=== PATIENT | female | born 1970 | race Caucasian/White ===

== ENCOUNTER 2018-07-09 22:47 | Emergency (ER) | payer BC ==
--- NOTE | 2018-07-09 23:27 | EDM.PDOC ---
ED HPI GENERAL MEDICAL PROBLEM - General Chief Complaint: Head Injury Stated Complaint: FELL IN SHOWER, HIT LEFT SIDE OF FACE Time Seen by Provider: 07/09/18 23:21 Source of Information: Reports: Patient, Family, RN Notes Reviewed History Limitations: Reports: No Limitations - History of Present Illness INITIAL COMMENTS - FREE TEXT/NARRATIVE: 48-year-old female presents to the emergency department today following trauma at home she slipped in the shower and injuring her right forearm and left side of her face she may have been unconscious for a brief moment but no nausea and vomiting at this time. Does complain of headache face Pain Score (Numeric/FACES): 1 - Related Data Allergies Allergy/AdvReac Type Severity Reaction Status Date / Time Tetracyclines Allergy Swollen Verified 07/09/18 23:07 Tongue Home Meds: Home Meds Losartan [Cozaar] 25 mg PO DAILY 07/09/18 [History] Past Medical History Cardiovascular History: Reports: Hypertension [employer] History: Reports: Psychiatric History: Reports: Depression - Infectious Disease History Infectious Disease History: Reports: Chicken Pox - Past Surgical History Female Surgical History: Reports: Section, Tubal Ligation Social & Family History - Tobacco Use Smoking Status *Q: Never Smoker - Caffeine Use Caffeine Use: Reports: None - Recreational Drug Use Recreational Drug Use: No ED ROS GENERAL - Review of Systems Review Of Systems: See Below Constitutional: Reports: No Symptoms HEENT: Reports: Other (Facial pain) Respiratory: Reports: No Symptoms Cardiovascular: Reports: No Symptoms GI/Abdominal: Reports: No Symptoms : Reports: No Symptoms Musculoskeletal: Reports: No Symptoms Skin: Reports: No Symptoms Neurological: Reports: No Symptoms ED EXAM, HEAD INJURY - Physical Exam Exam: See Below Text/Narrative:: No tenderness wrists elbows shoulders bilaterally no tenderness at the knees there is bruising appreciated along the forearm right side Exam Limited By: No Limitations General Appearance: Alert, WD/WN, No Apparent Distress Head: Atraumatic, Facial Ecchymosis, Facial Swelling Nexus Criteria: No: Posterior, Midline Cervical Tenderness, Evidence of Intoxication, Altered Level of Consciousness, Focal Neurological Deficit, Painful Distraction Injuries Eyes: Bilateral Eye: EOMI, Normal Inspection Nose: Normal Inspection, Normal Mucousa, No Blood Throat/Mouth: Normal Inspection, Normal Lips, Normal Teeth, Normal Gums, Normal Oropharynx, Normal Voice, No Airway Compromise Neck: Non-Tender, Full Range of Motion, Normal Alignment, Normal Inspection Respiratory: No Respiratory Distress, Lungs Clear, Normal Breath Sounds, No Accessory Muscle Use Cardiovascular: Regular Rate, Rhythm, No Murmur Course - Vital Signs Last Recorded V/S: Last Vital Signs Temp 97.2 F 07/09/18 23:14 Pulse 61 07/09/18 23:14 Resp 16 07/09/18 23:14 BP 141/72 H 07/09/18 23:14 Pulse Ox 98 07/09/18 23:14 - Orders/Labs/Meds Orders: Active Orders 24 hr Category Date Time Status Head wo Cont [CT] Stat Exams 07/09/18 23:24 Taken Max Facial Sinus wo Cont [CT] Stat Exams 07/09/18 23:24 Taken Departure - Departure Time of Disposition: 00:02 Disposition: Home, Self-Care 01 Condition: Good Clinical Impression: Head injury Qualifiers: Encounter type: initial encounter Qualified Code(s): S09.90XA - Unspecified injury of head, initial encounter - Discharge Information Referrals: PCP,None [Primary Care Provider] - Forms: ED Department Discharge Additional Instructions: Follow head injury guidelines sheet, Please followup with your primary care provider in 3-5 days if not better, please call return to the emergency department with worsening of symptoms. - My Orders Last 24 Hours: My Active Orders 07/09/18 23:24 Head wo Cont [CT] Stat Max Facial Sinus wo Cont [CT] Stat - Assessment/Plan Last 24 Hours: My Active Orders 07/09/18 23:24 Head wo Cont [CT] Stat Max Facial Sinus wo Cont [CT] Stat Plan: Assessment Acuity = acute Site and laterality = head injury at risk for concussion Etiology = secondary to fall Manifestations = none Location of injury = Home Lab values = CT scan of head and maxillary facial bones show no acute process Plan Head injury guidelines sheet provided follow-up primary care as needed This note was dictated using [employer] voice recognition software please call with any questions on syntax or grammar.
== END 2018-07-10 00:07 | disposition home or self-care (01) ==
LOC: JP.ED 22:47
DX: S09.90XA Unspecified injury of head, initial encounter (principal); S50.11XA Contusion of right forearm, initial encounter; I10 Essential (primary) hypertension; Z88.1 Allergy status to other antibiotic agents; Z79.899 Other long term (current) drug therapy; W01.0XXA Fall on same level from slipping, tripping and stumbling without subsequent striking against object, initial encounter; Y92.009 Unspecified place in unspecified non-institutional (private) residence as the place of occurrence of the external cause
CPT/HCPCS: 70450; 70486; 99284-25